=== PATIENT | female | born 2000 | race African-American/Black ===

== ENCOUNTER 2022-10-14 05:14 | Emergency (ER) | payer MEDICAID ==
[~2022-10-14] VITALS: Ht 175.3 cm; Wt 81.5 kg
[2022-10-14 05:22] VITALS: BP 130/81; PULSE 98; RESP 15; TEMP 98.4; O2SAT 98
[2022-10-14 06:16] LABS: CLARITY URINE CLEAR (CLEAR); COLOR URINE YELLOW (YELLOW); GLUCOSE URINE NEGATIVE (NEGATIVE); KETONES URINE NEGATIVE (NEGATIVE); LEUKOCYTE ESTERASE URINE NEGATIVE (NEGATIVE); NITRITE URINE NEGATIVE (NEGATIVE); OCCULT BLOOD URINE NEGATIVE (NEGATIVE); PH URINE 5.5 (4.5-8.0); PROTEIN URINE TRACE (NEGATIVE); SPECIFIC GRAVITY URINE 1.023 (1.005-1.030); UROBILINOGEN URINE 0.2 E.U./dL (0.2-1.0)
[2022-10-14] MEDS ORDERED: HYDROCODONE/ACETAMINOPHEN 10/325MG TABLET PO ONE (06:30)
[2022-10-14] MEDS ORDERED: LIDOCAINE/PRILOCAINE CREAM 5 GM TUBE TOP ONE (06:30)
[2022-10-14 08:23] LABS: BACTERIA URINE TRACE; SQUAMOUS EPITHELIAL CELL URINE FEW /lpf (RARE/1+)
[2022-10-14 08:25] LABS: RBC URINE NONE SEEN /hpf (0-2); WBC URINE 0-2 /hpf (0-2)
[2022-10-14] MEDS ORDERED: MUPI1OIN4 TP (09:03)
[2022-10-14] MEDS ORDERED: IBUP-2030 MT (09:37)
== END 2022-10-14 10:25 | disposition home or self-care (01) ==
LOC: ER 05:14
DX: S91.209A Unspecified open wound of unspecified toe(s) with damage to nail, initial encounter (principal); X58.XXXA Exposure to other specified factors, initial encounter; Y93.89 Activity, other specified; Y92.89 Other specified places as the place of occurrence of the external cause; Y99.8 Other external cause status
CPT/HCPCS: 81003; 81025; 11730; 99284; Z7610 ×3; 99283

== ENCOUNTER 2024-09-25 22:47 | Emergency (ER) | payer MEDICAID ==
[~2024-09-25] VITALS: Ht 177.8 cm; Wt 89.0 kg
[~2024-09-25 22:47] MED LIST: IBUP-2030 MT; MUPI1OIN4 TP
[2024-09-25 23:01] VITALS: O2SAT 99
[2024-09-26] LABS: CLARITY URINE CLEAR (CLEAR); COLOR URINE YELLOW (YELLOW); GLUCOSE URINE NEGATIVE (NEGATIVE); KETONES URINE NEGATIVE (NEGATIVE); LEUKOCYTE ESTERASE URINE 1+ (NEGATIVE); NITRITE URINE NEGATIVE (NEGATIVE); OCCULT BLOOD URINE NEGATIVE (NEGATIVE); PH URINE 5.5 (4.5-8.0); PROTEIN URINE NEGATIVE (NEGATIVE); SPECIFIC GRAVITY URINE 1.014 (1.005-1.030); UROBILINOGEN URINE 0.2 E.U./dL (0.2-1.0)
[2024-09-26 00:14] LABS: BASOPHILS % 0.6 % (0.0-2.0); EOSINOPHILS % 1.4 % (0.0-5.0); HEMATOCRIT. 36.7 % (36.0-48.0); HEMOGLOBIN. 12.5 g/dL (12.0-16.0); LYMPHOCYTES % 24.7 % (20.0-50.0); MEAN PLATELET VOLUME 8.5 fl (7.4-10.4); MONOCYTES % 7.9 % (2.0-8.0); NEUTROPHILS % 65.4 % (40.0-76.0); PLATELET 272 x1000/uL (130-400); RED BLOOD CELL COUNT 4.02 mill/uL (4.2-5.4); RED CELL DISTRIBUTION WIDTH 13.4 % (11.6-14.6)
[2024-09-26 00:21] LABS: BACTERIA URINE TRACE; RBC URINE 0-2 /hpf (0-2); SQUAMOUS EPITHELIAL CELL URINE FEW /lpf (RARE/1+)
[2024-09-26 00:28] LABS: CREATININE 0.8 mg/dL (0.6-1.0); UREA NITROGEN BLOOD 10 mg/dL (9-23)
[2024-09-26 00:32] LABS: HCG SCREEN POSITIVE
[2024-09-26 00:46] LABS: B-HCG QUANTITATIVE 96781 mIU/mL (<6)
[2024-09-26] MEDS: SODIUM CHLORIDE 0.9% 1,000 ML IV ONE (01:00)
[2024-09-26] MEDS ORDERED: CEPH500C2 MT (02:21)
[2024-09-26 02:25] VITALS: BP 103/57; PULSE 76; RESP 19; TEMP 36.8; O2SAT 100
== END 2024-09-26 02:53 | disposition home or self-care (01) ==
LOC: ER 22:47
DX: O23.41 Unspecified infection of urinary tract in pregnancy, first trimester (principal); N39.0 Urinary tract infection, site not specified; Z3A.01 Less than 8 weeks gestation of pregnancy
CPT/HCPCS: 80048; 81003; 81025; 84703; 84702; 85025; 86850; 86900; 86901; 36415; 99284; 76801; J7030; Z7610

== ENCOUNTER 2024-10-27 19:37 | Emergency (ER) | payer MEDICAID ==
[~2024-10-27] VITALS: Ht 177.8 cm; Wt 90.0 kg
[~2024-10-27 19:37] MED LIST changes: +CEPH500C2 MT
[2024-10-27 19:49] VITALS: O2SAT 98
[2024-10-27] MEDS: ACETAMINOPHEN 500MG TABLET PO ONE (20:54)
[2024-10-27] MEDS: DIPHENHYDRAMINE 25MG CAPSULE PO ONE (20:54)
[2024-10-27] MEDS ORDERED: TOPUD PO (21:36)
[2024-10-27] MEDS ORDERED: DIPH25TA62 MT (21:36)
[2024-10-27 21:49] VITALS: BP 118/50; PULSE 62; RESP 18; TEMP 36.8; O2SAT 100
== END 2024-10-27 21:55 | disposition home or self-care (01) ==
LOC: ER 19:38
DX: O98.511 Other viral diseases complicating pregnancy, first trimester (principal); B34.9 Viral infection, unspecified; Z20.822 Contact with and (suspected) exposure to COVID-19; Z3A.12 12 weeks gestation of pregnancy
CPT/HCPCS: 99283; 87426; Q0163

== ENCOUNTER 2025-02-24 20:56 | Emergency (ER) | payer OTHER ==
[~2025-02-24] VITALS: Ht 177.8 cm; Wt 87.0 kg
[~2025-02-24 20:56] MED LIST changes: +DIPH25TA62 MT; +TOPUD PO
[2025-02-24 21:11] VITALS: O2SAT 98
[2025-02-24] MEDS: CEFTRIAXONE SODIUM 500MG VIAL IM ONE (22:56)
[2025-02-24 23:13] LABS: UCG SCREEN NEGATIVE
[2025-02-24] MEDS ORDERED: METR-354 MT (23:21)
[2025-02-24] MEDS ORDERED: DOXY100C5 MT (23:21)
[2025-02-24 23:45] VITALS: BP 134/79; PULSE 70; RESP 14; TEMP 36.9; O2SAT 99
[2025-02-27 06:07] LABS: CHLAMYDIA TRACHOMATIS NAA Negative (Negative); NEISSERIA GONORRHOEAE NAA Negative (Negative)
== END 2025-02-24 23:51 | disposition home or self-care (01) ==
LOC: ER 20:56
DX: N76.0 Acute vaginitis (principal); B96.89 Other specified bacterial agents as the cause of diseases classified elsewhere; Z11.3 Encounter for screening for infections with a predominantly sexual mode of transmission
CPT/HCPCS: 99283; 87491; 87591; 87210; 96372; 81025; J0696